=== PATIENT | male | born 1970 | race Hispanic/Latino ===

== ENCOUNTER 2017-12-13 22:43 | Emergency (ER) | payer OTHER ==
[2017-12-13] MEDS ORDERED: Tdap Vaccine 0.5 ml Vial (10-64 yrs) IM ONE (22:46)
[2017-12-13] MEDS ORDERED: Lidocaine/Epi 1% 1:100000 20 ML IJ ONE (22:46)
[2017-12-13] MEDS ORDERED: Lidocaine 1% w Epi 1:100,000 Inj ONE (22:50)
[2017-12-13 22:52] VITALS: TEMP 98.6; O2SAT 96
--- NOTE | 2017-12-13 23:42 | ED PDOC ---
HPI: Trauma/Fall - HPI Time Seen by Provider: 12/13/17 22:46 Chief Complaint (Nursing): Trauma Chief Complaint (Provider): Trauma History Per: Patient Location Of Injury: Right: Head Associated Symptoms: denies: Dizziness Additional Complaint(s): Ilia rGady is a 47 year old male with no past medical history who presents to the emergency department after being struck in the head by a car door and sustaining a L-shaped laceration on the right occipital part of the head. Patient denies any loss of consciousness or dizziness. PMD: No Provider Past Medical History Reviewed: Historical Data, Nursing Documentation, Vital Signs Vital Signs: Last Vital Signs Temp 98.6 F 12/13/17 22:44 Pulse 89 12/13/17 22:44 Resp 16 12/13/17 22:44 BP 135/87 12/13/17 22:44 Pulse Ox 96 12/13/17 22:44 - Medical History PMH: No Chronic Diseases - Surgical History Surgical History: No Surg Hx - Family History Family History: States: Unknown Family Hx - Home Medications Home Medications: Ambulatory Orders Medication Instructions Recorded Naproxen [Naprosyn] 500 mg PO Q12H #20 tab 12/13/17 Sulfamethoxazole/Trimethoprim 1 tab PO BID #20 tab 12/13/17 [Bactrim DS 800 mg-160 mg] - Allergies Allergies/Adverse Reactions: Allergies Allergy/AdvReac Type Severity Reaction Status Date / Time No Known Allergies Allergy Verified 12/13/17 22:46 Review of Systems ROS Statement: Except As Marked, All Systems Reviewed And Found Negative Constitutional: Negative for: Other (loss of consciousness ) Skin: Positive for: Other (L-shaped laceration on the right occipital part of head) Neurological: Negative for: Dizziness Physical Exam - Reviewed Nursing Documentation Reviewed: Yes Vital Signs Reviewed: Yes - Physical Exam Head Exam: Negative for: ATRAUMATIC (no orbital tenderness/deformity or palpable fracture), NORMOCEPHALIC Skin: Positive for: Normal Color, Warm, Dry Eye Exam: Positive for: Normal appearance, EOMI, PERRL ENT: Positive for: Normal ENT Inspection, Other (no mandibular tenderness ) Neck: Positive for: Normal, Painless ROM, Supple Cardiovascular/Chest: Positive for: Regular Rate, Rhythm. Negative for: Murmur Back: Positive for: Normal Inspection. Negative for: L CVA Tenderness, R CVA Tenderness, Vertebral Tenderness Extremity: Positive for: Normal ROM. Negative for: Tenderness, Calf Tenderness, Deformity, Swelling Neurologic/Psych: Positive for: Alert, Oriented (x3). Negative for: Motor/Sensory Deficits - ECG O2 Sat by Pulse Oximetry: 96 (RA) Pulse Ox Interpretation: Normal Medical Decision Making Medical Decision Making: Initial Time: 22:46 Initial Plan: --CT Head w/o contrast --CT Maxillofacial w/o contrast --Tetanus 0.5 ml IM --Lidocaine/Epinephrine [1% 1:[id number] 20 ML] 3 ml IJ Scribe Attestation: Documented by Hector Ward, acting as a scribe for Claudio Phillips MD. Provider Scribe Attestation: All medical record entries made by the Scribe were at my direction and personally dictated by me. I have reviewed the chart and agree that the record accurately reflects my personal performance of the history, physical exam, medical decision making, and the department course for this patient. I have also personally directed, reviewed, and agree with the discharge instructions and disposition. Procedures - Laceration/Wound Repair Right Occipital Wound Length (cm): 6 Wound's Depth, Shape: superficial Wound Explored: no foreign body removed Anesthesia: Lidocaine w/ Epi Wound Repaired With: Sutures Suture Size/Type: 5:0 Number of Sutures: 17 Wound Complexity: Simple Progress: Provider repaired and closed the 6 cm L-shaped laceration on the right occipital part of the head with 17 5-0 sutures. Lidocaine 1% and epinephrine was used for local anesthesia. The wound was irrigated copiously with saline and inspected for foreign bodies- none were found. Disposition - Clinical Impression Clinical Impression: Head injury, Laceration - Patient ED Disposition Is Patient to be Admitted: No - Disposition Referrals: [facility] [Outside] Disposition: Routine/Home Disposition Time: 00:17 Condition: FAIR Prescriptions: Naproxen [Naprosyn] 500 mg PO Q12H #20 tab Sulfamethoxazole/Trimethoprim [Bactrim DS 800 mg-160 mg] 1 tab PO BID #20 tab Instructions: Laceration Repair, Closed Head Injury Forms: [facility] (Bhutanese)
[2017-12-14 00:56] VITALS: BP 117/57; PULSE 88; RESP 18
--- NOTE | 2017-12-14 11:44 | RAD ---
Date of service: 12/13/2017 PROCEDURE: Right Ankle Radiographs. HISTORY: trauma COMPARISON: None FINDINGS: BONES: No acute fracture or destructive bony lesion identified. Accessory ossicles are seen inferior to the medial malleolus. JOINTS: Normal. No osteoarthritis. Ankle mortise maintained. Talar dome intact SOFT TISSUES: Normal. OTHER FINDINGS: None. IMPRESSION: No acute fracture or dislocation right ankle.
--- NOTE | 2017-12-14 12:55 | CT ---
Date of service: 12/13/2017 PROCEDURE: CT HEAD WITHOUT CONTRAST. HISTORY: r/o bleed COMPARISON: None available. TECHNIQUE: Axial computed tomography images were obtained through the head/brain without intravenous contrast. Supplemental Coronal and Sagittal projections created and reviewed. Radiation dose: Total exam DLP = 836.17 mGy-cm. This CT exam was performed using one or more of the following dose reduction techniques: Automated exposure control, adjustment of the mA and/or kV according to patient size, and/or use of iterative reconstruction technique. FINDINGS: HEMORRHAGE: No intracranial hemorrhage. BRAIN: No mass effect or edema. No atrophy or chronic microvascular ischemic changes. VENTRICLES: Unremarkable. No hydrocephalus. CALVARIUM: Unremarkable. PARANASAL SINUSES: Unremarkable as visualized. No significant inflammatory changes. MASTOID AIR CELLS: Unremarkable as visualized. No inflammatory changes. OTHER FINDINGS: Air within the soft tissues of the right scalp/parietal and frontal region. IMPRESSION: No acute intracranial abnormalities. No significant findings to account for the clinical presentation. Air within the soft tissues, scalp of the right frontal parietal region. No adjacent calvarial or underlying intracranial abnormality. Concordant results (preliminary interpretation) provided by [facility]. Procedure Completed: 23:38 Preliminary Report: Dictated and Authenticated: 00:13 Final Interpretation: 12:54
--- NOTE | 2017-12-14 12:58 | CT ---
Date of service: 12/13/2017 PROCEDURE: CT MAXILLOFACIAL BONES WITHOUT CONTRAST HISTORY: trauma COMPARISON: December 13, 2017. CT head TECHNIQUE: Contiguous axial CT images of the maxillofacial bones were obtained. Coronal and sagittal reformats were generated. Radiation dose: Total exam DLP = 764.36 mGy-cm. This CT exam was performed using one or more of the following dose reduction techniques: Automated exposure control, adjustment of the mA and/or kV according to patient size, and/or use of iterative reconstruction technique. FINDINGS: NASAL BONES: Unremarkable. ORBITS: Unremarkable. PARANASAL SINUSES/ MASTOIDS: Mucous retention cyst left maxillary sinus. MAXILLA: Unremarkable. MANDIBLE/ TEMPOROMANDIBULAR JOINTS: Unremarkable. SKULL BASE: Unremarkable. TEMPORAL BONES: Middle ears and mastoid grossly unremarkable. OTHER FINDINGS: Air identified within soft tissues of the right frontal parietal region. IMPRESSION: Unremarkable non contrast enhanced CT of the maxillofacial bones. Incidental finding(s): Subcutaneous air soft tissues right frontal parietal region. Findings identified CT head performed concurrent with this study. Concordant results (preliminary interpretation) provided by [employer]. Procedure Completed: 23:40 Preliminary Report: Dictated and Authenticated: 00:27. Final Interpretation: 12:56. December 14, 2017
== END 2017-12-14 00:27 | disposition home or self-care (01) ==
LOC: H.ER 22:43
DX: S09.90XA Unspecified injury of head, initial encounter (principal); S01.81XA Laceration without foreign body of other part of head, initial encounter; W22.8XXA Striking against or struck by other objects, initial encounter; Y92.89 Other specified places as the place of occurrence of the external cause; Z23 Encounter for immunization